=== PATIENT | male | born 1975 | race African-American/Black ===

== ENCOUNTER 2021-01-21 07:45 | Day surgery (SDC) | payer OTHER ==
[~2021-01-21] VITALS: Ht 193 cm; Wt 113.4 kg
[~2021-01-21 07:45] MED LIST: ACYCLOVIR200 MG PO; AMOXICILLIN875 MG PO; ASPIRIN81 MG PO; AUGMENTIN500TAB PO; BACTRIM DS1 TAB PO; FLEXERIL5 MG PO; HYDROCO/APAP1 TA9 PO; LEVETIRACETAM500 M1 PO; LEVOTHYROXIN125 MCG PO; LIPITOR20 M1 PO; LORTAB 7.57.5 MG PO; ZOVIRAX200 MG PO; ZPAK PO; ZYRTEC10 MG PO
[2021-01-21 10:24] VITALS: BP 114/75
== END 2021-01-21 10:38 | disposition home or self-care (01) ==
LOC: ENDO 07:45
PROVIDERS: ATTEND Surgery
DX: Z12.11 Encounter for screening for malignant neoplasm of colon (principal); Z86.73 Personal history of transient ischemic attack (TIA), and cerebral infarction without residual deficits